=== PATIENT | female | born 1955 ===

== ENCOUNTER 2025-05-12 10:09 | Outpatient (AMB) | payer MEDICARE, SELFPAY ==
--- OUTSIDE RECORDS SUMMARY | 2025-05-12 11:23 | XMS_ITS | Patient Health Record ---
[facility] Organization [facility] Address [address] [place] [address] Care Team Providers Care Returns Supervisor Name Role Phone KHARI GAUTHIER Primary Care Provider Janette Acuna Unavailable [phone] Allergies Allergen (clinical drug ingredient) Drug/Non Drug Allergy documented on EMR Reaction Allergy Type Onset Date Status CATAPRES Unknown Drug Allergy Active fluconazole DIFLUCAN Intolerence Drug Allergy Act tabitha Substance with sulfonamide structure and antibacterial mechanism of action (substance) Sulfa Antibiotics Unknown Drug Allergy Active Results Component Value Reference Range Notes [id number] IGP No Culture 30 Plus Reviewed date:09/15/2024 04:21:42 PM Interpretation: Performing Lab:[facility], [address], [address], [place], Phone - [phone], Director - [facility] Notes/Report: Clinical Information:[id number] Dates / Results....08/26/20 NEG HPV No. of containers..01 ThinPrep Vial DIAGNOSIS: NEGATIVE FOR IN TRAEPITHELIAL LESION OR MALIGNANCY. Specimen adequacy: Satisfactory for evaluation. Endocervical and/or squamous metaplastic cells (endocervical component) are present. Clinician provided ICD10: Z0 1.419 Performed by: Phi Corona ytotechnologist (ASCP) . . Note: The Pap smear is a screening test designed to aid in the detection of premalignant and malignant conditions of the uterine cervix. It is not a diagnostic procedure and should not be used as the sole means of detecting cervical cancer. Both false-positive and false-negative reports do occur. . Test Methodology: This liquid based ThinPrep(R) pap test was screened with the use of an image guided system. HPV Aptima Negative Negative This nucleic acid amplification test detects fourteen high-risk HPV types (16,18,31,33,35,39,45,51,52,56,58 ,59,66,68) without differentiation. HPV Genotype Reflex Criteria not met, HPV Genotype not performed. PDF Report Reviewed date:09/15/2024 04:21:28 PM Interpretation: Performing Lab:[facility] [place], [address], [address], [place], Phone - [phone], Director - [facility] Notes/Report: Clinical Information:[id number] Dates / Results....08/26/20 NEG HPV No. of containers..01 ThinPrep Vial Reason For Referral No Information Medications Medication SIG (Take, Route, Frequency, Duration) Notes Start Date End Date Status Furosemide 20MG 1 ORAL daily BID 07/07/2011 Active Nystatin-Triamcinolone 153078-6.1 UNIT/GM 1 application Externally TWICE DAILY NEEDED; Duration: 90 days 09/05/2023 Not-Taking Lisinopril 40MG 1 ORAL daily; Durati on: -3 07/07/2011 Active Anusol-HC 2.5 % 1 application to affected area Rectal Three times a day PRN; Duration: 30 day(s) 05/03/2022 Not-Taking Yuvafem 10 MCG 1 tablet Vaginal TWI CE A WEEK; Duration: 90 days 08/30/2022 Not-Taking Co Q-10 400 MG 1 capsule with a nolan l Orally Once a day 08/23/2012 Active Estradiol Vaginal Cream 0.01% 1 Gram to the affected area Vaginal/Vulva Twice a week; Duration: 90 days 09/05/2023 Active Atorvastatin Calcium 10 MG 1 tablet Orally Once a day; Duration: 30 day(s) Active Patanol 0.1% 1-2 Ophthalmic NEEDED; Duration: -3 [facility] 10/08/2013 Not-Taking Albuterol Sulfate 108 (90 Base) MCG/ACT 2 puffs as needed Inhalation every 6 hrs PRN Active Vitamin C 1000 MG 1 Orally twice daily [facility] 07/07/2011 Not-Taking Magnesium 1 ORAL daily; Durati on: -3 08/23/2012 Active MethylFolate 400 MCG 1000 mcg Orally Onc e a day Not-Taking Calcium 600MG 1 ORAL twice daily; Duration: -3 [facility] 10/08/2013 Not-Taking Probiotic - as directed Orally Active Yuvafem 10 MCG 1 tablet Vaginal TWI CE A WEEK; Duration: 90 days 08/13/2019 Not-Taking Flonase 50 MCG/ACT 1 spray in each nost ril Nasally Once a day Active Omeprazole 10 MG 1 capsule 30 minutes before morning meal Orally Once a day; Duration: 30 day(s) Active ZyrTEC Allergy 10 MG 1 tablet Orally Onc e a day; Duration: 30 day(s) Active Stool Softener 100 MG 1 capsule as neede d Orally Once a day bid Not-Taking amLODIPine Besylate 5 MG 1 tablet Orally Once a day; Duration: 30 days Active Methyl B-12 1000 MCG as directed Orally Active Estradiol Vaginal Cream 0.01% 1 Gram to the affected area Vaginal/Vulva Twice a week; Duration: 90 Days 09/10/2024 Active Social History Tobacco Use: Social History Observation Description Date Details (start date - stop date) Never Smoker NA - NA Tobacco Use/Smoking Question Answer Notes Are you a nonsmoker Sexual History Question Answer Notes Had sex in the past 12 months (vaginal, oral, or anal)? No Problems Problem Type SNOMED Code ICD Code Onset Dates Problem Status W/U Status Risk Notes Problem Postmenopausal atrophic vaginitis (13019377) Postmenopausal atrophic vaginitis (N95.2) Active confirmed Problem Atrophy of vulva (398902485) Atrophy of vulva (N90.5) Active confirmed Problem Hyperlipidemia (11682682) Other and unspecified hyperlipidemia (272.4) Active confirmed Major Problem Benign essential hypertension (7588605) Essential hypertension, benign (401.1) Active confirmed Major Problem Postmenopausal bleeding (24738713) Postmenopausal bleeding (627.1) Active confirmed Diag Problem Menopausal symptom (10551398) Symptomatic menopausal or female climacteric states (627.2) Active confirmed Major Problem Gynecological examination normal (236296543206301) Routine gynecological examination (V72.31) Active confirmed Major Problem Surgical follow-up (518249441) Surgery follow-up examination (V67.0) Active confirmed Diag Problem Screening for malignant neoplasm of colon (075897138) Special screening for malignant neoplasms, colon (V76.51) Active confirmed Major Vital Signs Temperature 97.8 degrees Fahrenheit 09/10/2024 Blood pressure diastolic 78 mm Hg 09/10/2024 Height 62 in 09/10/2024 Blood pressure systolic 134 mm Hg 09/10/2024 Weight 165 lbs 09/10/2024 BMI 30.18 kg/m2 09/10/2024 Encounters Encounter Location Date Provider Diagnosis [facility] [address] [place] [address] 09/10/2024 Janette Amador Encounter for gynecological examination (general) (routine) without abnormal findings Z01.419 ; Encounter for screening mammogram for malignant neoplasm of breast Z12.31 ; Postmenopausal atrophic vaginitis N95.2 ; Atrophy of vulva N90.5 and Encounter for screening for osteoporosis Z13.820 Assessments Encounter Date Diagnosis (ICD Code) Assessment Notes Treatment Notes Treatment Clinical Notes Section Notes 09/10/2024 Encounter for gynecological examination (general) (routine) without abnormal findings (ICD-10 - Z01.419) PAP TEST WITH HPV TYPING WAS OBTAINED. 09/10/2024 Encounter for screening mammogram for malignant neoplasm of breast (ICD-10 - Z12.31) REGULAR MAMMOGRAMS AND SBE'S WERE RECOMMENDED. 09/10/2024 Postmenopausal atrophic vaginitis (ICD-10 - N95.2) DISCUSSED FINDINGS, DX AND TX OPTIONS. ADVISED PAT TO MAKE SURE SHE APPLIED ADEQUATE AMOUNT OF ESTRADIOL CREAM INTO THE VAGINAL CANAL RX AND DETAILED INSTRUCTIONS WERE GIVEN. 09/10/2024 Atrophy of vulva (ICD-10 - N90.5) DISCUSSED FINDINGS, DX AND TX OPTIONS. APPLY BLUEBERRY SIZED AMOUNT OF ESTRADIOL CREAM ALONG VULVA TWICE WEEKLY. 09/10/2024 Encounter for screening for osteoporosis (ICD-10 - Z13.820) BONE DENSITY WAS ORDERED. Plan Of Treatment Pending Test Test Name Order Date MAMMOGRAM, SCREENING 12/07/2014 MAMMOGRAM, SCREENING 08/26/2020 MAMMOGRAM, SCREENING 08/29/2021 MAMMOGRAM, SCREENING 08/30/2022 MAMMOGRAM, SCREENING 09/10/2024 MAMMOGRAM, SCREENING 12/27/2015 Urinalysis 09/05/2023 Urinalysis 05/03/2022 Urinalysis 05/24/2022 Urinalysis 04/25/2019 THIN PREP,HPV,COLLINS IF HPV+ (>29YR)(SCRN) 04/10/2017 URINE CULTURE 04/25/2019 BONE DENSITY 08/26/2020 BONE DENSITY 09/10/2024 MM Digital Mammo Screening 08/29/2021 MM Digital Mammo Screening 08/26/2020 MM Digital Mammo Screening 08/30/2022 MM Digital Mammo Screening 09/10/2024 MM Digital Mammo Screening 09/05/2023 ULTRASOUND: PELVIC W/TRANSVAGINAL 2018 Next Appt Details Provider Name:Janette Montemayor nany, 09/14/2025 09:00:00 AM, [address], [address], [place], [address], Insurance Providers Payer Name Payer Address Payer Phone Subscriber Number Group Number Insured Name Patient Relationship to Insured Coverage Start Date Coverage End Date MEDICARE [address] [place], [place] [id number] LACEY KOROMA Self - patient is the insured MEDEX [address] [place] [address] [phone] [id number] LACEY KOROMA Self - patient is the insured Medical (General) History Medical History History ICD Code Postmenopausal bleeding N95.0 Hyperlipidemia, unspecified E78.5 Essential (primary) hypertension I10 Menopausal and female climacteric states N95.1 Postmenopausal atrophic vaginitis N95.2 Pelvic Pain R10.2 Other microscopic hematuria R31.29 Unspecified abdominal pain R10.9 Unspecified hemorrhoids K64.9 Surgical History Surgery Date(Month/Year) Dialation & Curettage [place] Teeth Extraction Colonoscopy Hospitalization History Reason Date(Month/Year) See Surgical Hx 2 Vaginal Deliveries
== END 2025-05-12 10:47 | disposition home or self-care (01) ==
LOC: HO.HMGAL 10:09
PROVIDERS: PCP Internal Medicine; Visit Provider Registered Nurse Emergency
DX: J30.89 Other allergic rhinitis (principal)
CPT/HCPCS: 95117; 95165